=== PATIENT | female | born 1970 | race Caucasian/White ===

== ENCOUNTER 2019-01-06 17:53 | Emergency (ER) | payer OTHER ==
[~2019-01-06] VITALS: Ht 165.1 cm; Wt 54.4 kg
--- NOTE | 2019-01-06 17:58 | NUR ---
PT C/O HEADACHE AND CHEST PAIN WHILE ON NASAL PROCEDURE W/ DR VALDES. PT TOOK XANAX BEFORE IT PER PT. PT AAOX4, VSS, BREATHING EVEN ADN UNLABORED ON ROOM AIR. PT CONNECTED TO THE MONITOR. WILL CONTINUE TO MONITOR
--- NOTE | 2019-01-06 17:58 | NUR ---
AT BEDSIDE FOR EVAL
[2019-01-06] MEDS ORDERED: ONDANSETRON HCL/PF 4 MG/2 ML VIAL IVP ONE (18:00)
[2019-01-06] MEDS ORDERED: diphenhydrAMINE HCL 50 MG/ML VIAL IV ONE (18:00)
[2019-01-06] MEDS ORDERED: IV NS 0.9% 500 ML BAG IV ONE (18:00)
[2019-01-06] MEDS ORDERED: diphenhydrAMINE HCL 50 MG/ML VIAL ONE (18:02)
[2019-01-06] MEDS ORDERED: ONDANSETRON HCL/PF 4 MG/2 ML VIAL ONE (18:02)
[2019-01-06 18:15] LABS: BASOPHILS % (AUTO) 0.4 % (0.0-2.0); EOSINOPHILS % (AUTO) 0.4 % (0.0-6.0); HEMATOCRIT 38 % (33-45); HEMOGLOBIN 12.8 g/dL (11.5-14.8); LYMPHOCYTES # (AUTO) 4.5 /CMM (0.8-4.8); LYMPHOCYTES % (AUTO) 47.3 % (20.0-44.0); MEAN CORPUSCULAR HGB CONC 34 g/dl (31.0-36.0); MEAN CORPUSCULAR VOLUME 91 fL (82-100); MONOCYTES # (AUTO) 0.8 /CMM (0.1-1.30); MONOCYTES % (AUTO) 8.5 % (2.0-12.0); NEUTROPHILS # (AUTO) 4.1 /CMM (1.8-8.9); NEUTROPHILS % (AUTO) 43.4 % (43.0-81.0); PLATELET COUNT (AUTO) 348 /CMM (150-450); RED BLOOD CELL COUNT(AUTO) 4.13 MIL/uL (4.0-5.2); WHITE BLOOD COUNT (AUTO) 9.5 K/uL (4.3-11.0)
--- NOTE | 2019-01-06 18:19 | NUR ---
XRAY AT BEDSIDE
[2019-01-06 18:26] LABS: CARBON DIOXIDE 24 mmol/L (21-32); CHLORIDE 103 mmol/L (98-107); CREATININE 0.8 mg/dL (0.6-1.3); GLUCOSE 113 mg/dL (74-106); SODIUM SERUM 139 mmol/L (136-145); UREA NITROGEN, BLOOD 13 mg/dL (7-18)
[2019-01-06] MEDS ORDERED: MORPHINE SULFATE INJ 2 MG/ML DISP.SYRIN IV ONE (19:30)
[2019-01-06] MEDS ORDERED: MORPHINE SULFATE INJ 4 MG/ML DISP.SYRIN ONE ×2 (19:35→20:09)
--- NOTE | 2019-01-06 19:42 | NUR ---
pt refused morphine, made aware
[2019-01-06 20:02] VITALS: BP 121/101
--- NOTE | 2019-01-06 20:10 | NUR ---
PT TRANSFERRED TO [facility] IN STABLE CONDITION
--- NOTE | 2019-01-06 20:10 | NUR ---
PT GIVEN MORPHINE 4MG PER DR'S ORDER
--- NOTE | 2019-01-06 20:11 | NUR ---
Patient transferred to [facility] in stable condition. Written and verbal after care instructions given. Patient verbalizes understanding of instruction.IV removed. Catheter intact and site benign. Pressure and 4x4 applied to site. No bleeding noted.
--- NOTE | 2019-01-06 20:14 | NUR ---
PER TEDDY AQUINO AT [facility] PT WILL GO TO NEURO-TELE 4TH FLOOR
--- NOTE | 2019-01-06 20:31 | NUR ---
REPORT GIVEN TO REYNALDO ENGLAND, [facility]
== END 2019-01-06 20:37 | disposition short-term general hospital (02) ==
LOC: ER 17:57
DX: I60.9 Nontraumatic subarachnoid hemorrhage, unspecified (principal)
CPT/HCPCS: 36415; 70450; 71045; 80048; 84484; 85025; 85610; 85730; 93005 ×2; 96374; 96375; 99291; 99292; J1200; J2405; J7040; J2270